=== PATIENT | female | born 1995 | race Caucasian/White ===

== ENCOUNTER → 2016-07-22 17:48 | Observation (INO) ==
--- NOTE | 2016-07-22 17:48 | OB/GYN Progress Note ---
Date of Encounter: 07/22/16 Time of Encounter: 17:45 - Assessment and Plan (1) Decreased movement Current Visit: Yes Status: Acute NST reactive, pt notes good movement while in triage (2) 38 weeks gestation of Current Visit: Yes Status: Acute (3) False labor Current Visit: Yes Status: Acute No cervical change while in triage. Discharge home with labor precautions. Subjective - Subjective Principal diagnosis: decreased movement Interval history: 21 year-old female presenting at 38w6d with c/o decreased movement today. She reports only a couple movements today when she would push on her abdomen. She also reports some contractions but not painful. No LOF, VB, or other complaints. She does admit to losing her mucus plug last evening. Antepartum ROS: contractions, no loss of fluid, no vaginal bleeding, no movement normal Objective - Exam FHR: category 1 FHR comments: NST reactive, good FM in triage Abdomen: Present: soft, gravid Uterus: Present: normal Cervical dilation: 4/80/-1 x 2 exams, no change while in triage
== END | disposition home or self-care (01) ==
LOC: 1NENULAB
PROVIDERS: ADMIT Obstetrics & Gynecology; ATTEND Obstetrics & Gynecology

== ENCOUNTER 2016-07-23 07:39 | Inpatient (IN) ==
--- NOTE | 2016-07-23 07:17 | OB/GYN History & Physical ---
Date of Encounter: 07/23/16 Time of Encounter: 07:10 Assessment and Plan (1) 39 weeks gestation of Current visit: Yes Status: Acute (2) Uterine contractions Current visit: Yes Status: Acute Pt has been seen twice in the last 24 hours for contractions. She is 39 weeks and is 4cm dilated. Waiting on repeat exam. Anticipate admit to L&D if attending physician agrees. Plan for pain medication and/or epidural as requested. GBS negative. Anticipate . History of Present Illness Chief complaint: contractions HPI: Ms. Gonzalez is a 21 year old female at 39 weeks presenting with c/o contractions and lower back pain. She reports constant lower back pain and contactions that are much more painful than when she was evaluated last evening. She also reports some mild lower back pain that is worse with contractions and some mild nausea that just started. No other complaints. This has been uncomplicated. Blood type A positive. Rubella immune. Serologies and GBS negative. Past Med Surg Social Fam HX - Past Medical History Medical history: no medical history Psychiatric history: anxiety, depression - Past Surgical History Surgical History: other - Social History Smoking Status: Never smoker Smokeless Tobacco Status: No Alcohol use: none Drug use: none - Family History Mother Living Status: Still Living Hx Family Cardiac Disorders: No Hx Family Respiratory Disorders: No Hx Family Cancer: No Hx Family GI Disorders: No Hx Family Genitourinary Disorders: No Hx Family Endocrine Disorder: No Hx Family Musculoskeletal Disorders: No Hx Family Neuromuscular Disorders: No Hx Family Neurologic Disorders: No Hx Family HEENT Disorders: No Hx Family Autoimmune Disorders: No Hx Family Reproductive Disorders: No Hx Family Psychosocial Disorders: No Hx Family Medical Disorders: No Obstetrical History - Pregnancies : 1 Medications and Allergies Vitamins 12/14/15 [History] Allergies pistachio nut Allergy (Verified 01/24/16 12:13) Swelling of Lip/Tongue/Throat Review of System OB All systems PM: reviewed and no additional remarkable complaints except as stated Exam - Constitutional Constitutional: well developed, well nourished, mild distress - HEENT HEENT: Mucus Membranes Moist - Lungs Respiratory exam: CTAB - Cardiovascular Cardiovascular exam: RRR - Abdomen Abdomen: Present: gravid, non tender - Extremities Extremities exam: normal inspection - Vulva Vulva: bilateral: normal - Vagina Vagina: Present: normal moisture - Cervix Dilation: 4 (per RN) - Anus/Rectum Anus/Rectum: Present: normal perianal skin Results All other labs normal. - VTE Reasons for not Prescribing Prophylaxis: Treatment not Indicated - Low risk for VTE
[~2016-07-23 07:39] MED LIST: *HR* Nalbuphine 20 MG/ML AMPUL IVP PRN; Famotidine 20 MG/2 ML VIAL IVP PRN; Metoclopramide 10 MG/2 ML VIAL IVP PRN; Naloxone 0.4 MG/ML INJ IVP PRN; Ondansetron 4 MG/2 ML VIAL IVP PRN; Ringers Solution, Lactated 1,000 ML IVC SCH
[2016-07-23 08:31] LABS: Basophils % 0.1 %; Eosinophils % 0.2 %; Hematocrit 37.2 % (35.3-44.9); Hemoglobin 12.3 g/dL (11.5-15.4); Immature Granulocytes % 0.7 % (0-4); Immature Platelets 7.9 % (1.1-6.1); Lymphocytes # 2.4 K/mcL (0.6-4.6); Lymphocytes % 16.1 %; Mean Corpuscular HGB Conc 33.1 g/dL (31.6-35.5); Mean Corpuscular Hemoglobin 27.4 pg (28.0-33.3); Mean Corpuscular Volume 82.9 fL (83.0-100.0); Mean Platelet Volume 11.4 fL (9.4-12.4); Monocytes # 1.3 K/mcL (0.0-1.3); Monocytes % 8.8 %; Neutrophils # 10.9 K/mcL (1.6-8.9); Platelet Count 174 K/mcL (140-400); Red Blood Count 4.49 M/mcL (3.82-4.97); Red Cell Distribution Width 13.2 % (11.5-14.5); Segmented Neutrophils % 74.1 %
--- NOTE | 2016-07-23 10:55 | OB Labor Progress Note ---
Date of Encounter: 07/23/16 Time of Encounter: 10:49 Labor Progress Note - Subjective Subjective: Pt up in room on birthing ball. Breathing through contractions. - Cervix Cervix: not checked - Heart Tones Heart Tones: 145 + accel intermittent monitoring. - Plan Plan: Continue current management plan Will reassess dilation this afternoon for change. If no change will consider AROM or augmentation. Intermittent monitoring before during and after contraction every 30 minutes. Anticipate
[2016-07-23] MEDS ORDERED: *HR* Nalbuphine 20 MG/ML AMPUL IVP PRN (13:40)
[2016-07-23] MEDS ORDERED: Oxytocin 20 units/ LR 1000 mL 20 UNIT/1,000 ML BAG IVC SCH (14:15)
--- NOTE | 2016-07-23 14:25 | OB Labor Progress Note ---
Date of Encounter: 07/23/16 Time of Encounter: 14:19 Labor Progress Note - Subjective Subjective: Pt resting comfortable now that she has had nubain. Pt states only feels contractions slightly. - Cervix Cervix: 4/100/-1 - Heart Tones Heart Tones: 145/moderate/+accels/-decels - Plan Plan: order placed to start pitocin per policy. Epidural when desires Anticipate
[2016-07-23] MEDS ORDERED: Epidural Premix (fent/bupiv) 110 ML EP ONE ×2 (15:54→21:55)
--- NOTE | 2016-07-23 16:00 | Anesthesia Evaluation PreOp ---
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 HX Other Medical History: Other (previous hip pain recieved physical therapy last 5 years ago, not positional dependent.) Anesthesia History: No Prior Anesthetic Complications, Past Anesthesia (wisdom teeth,.) Test: Positive Alcohol Use: none Drug use: none Medications and Allergies Vitamins 12/14/15 [History] Allergies pistachio nut Allergy (Verified 01/24/16 12:13) Swelling of Lip/Tongue/Throat Anesthesia Results - Labs 07/23/16 08:12 Anesthesia Exam - HEENT Pupil (Motor): Pupils equal Mallampati: II Teeth: Normal Oral Opening: Greater than 3 - KINDERGARTEN TEACHER LOC: Oriented KINDERGARTEN TEACHER Motor: Normal RUE, Normal LUE, Normal RLE, Normal LLE, Normal Face KINDERGARTEN TEACHER Sensory: Normal: RUE, LUE, RLE, LLE, Face - Cardiac Rhythm: Regular Murmur: None - Pulmonary Breath Sounds: bilateral Clear Respiratory Effort: Symmetrical Anesthesia Assess/Plan ASA Score: 2 Modified Reading Scale for Level of Consciousness: Cooperative, oriented, and tranquil Anesthetic Plan: General, Regional Monitoring Plan: Standard Monitors
--- NOTE | 2016-07-23 16:26 | Anesthesia Procedures ---
Date of Encounter: 07/23/16 Time of Encounter: 16:11 Procedures: Anesthesia - Epidural/Spinal Patient ID/Chart reviewed: Yes Patient examined: Yes OB Eval: Gestational age: term OB Eval: : 1 OB Eval: Dilated at (cm): 5 OB Eval: Contractions: Non-stressed pattern Consent Obtained: Yes Supplemental Oxygen: None/Room Air Site Prep: Aseptic Technique, Sterile prep and drape, 0.5% Chlorhexidine/Alcohol Patient position: upright Local Anesthetic: Lidocaine 1% Amount of Local Anesthetic used: 2 Touhy Needle Gauge: 18 Touhy Needle Depth (cm): 6 Catheter Depth at Skin (cm): 10 Test Dose (1.5% Lido + Epi): Volume given (mls): 3 Test Dose Result: Negative Loading Dose: Other: 12 ml from solution Loading Dose Administered: Thru Catheter Infusion Med: 0.125% Bupivacaine w/ 2 mcg/ml Fentanyl Infusion Rate (mls/hr): [address]: Tegaderm, Tape Interspace Used: L3-L4 Loss of Resistance (MOSHE): Yes (saline) Blood: No CSF: No Paresthesia: No Procedure: vss though out, FHR stable per RN's.
--- NOTE | 2016-07-23 23:04 | OB Labor Progress Note ---
Date of Encounter: 07/23/16 Time of Encounter: 23:03 Labor Progress Note - Subjective Subjective: pt starting to feel contractions and pressure in her bottom - Cervix Cervix: Complete - Heart Tones Heart Tones: 155/moderate/-accels/earlies and variables CatII - [place]: 1-3 - Plan Plan: Labor down untl feels more pressure. Anticipate
[2016-07-24] MEDS ORDERED: Measles/Mumps/Rubella Vacc 0.5 ML VIAL SQ PRN (04:19)
[2016-07-24] MEDS ORDERED: Acetaminophen 325 MG TABLET PO PRN (04:19)
[2016-07-24] MEDS ORDERED: Rho Immune Globulin 1,500 UNIT SYRINGE IM PRN (04:19)
[2016-07-24] MEDS ORDERED: Oxytocin 20 units/ LR 1000 mL 20 UNIT/1,000 ML BAG IVC SCH (04:30)
[2016-07-24] MEDS ORDERED: Ibuprofen 600 MG TABLET PO ONE (05:08)
[2016-07-24] MEDS: Ibuprofen 600 MG TABLET PO PRN ×2 (05:12→20:39)
--- NOTE | 2016-07-24 07:01 | OB/GYN Procedure Note ---
Delivery - Delivery Provider: Rosemarie Lugo) Intrapartum events: none Delivery induction: none Delivery augmentation: rupture of membranes, pitocin Delivery monitor: external FHT, external uterine, internal FHT Anesthesia: epidural Estimated Blood Loss: 150 - Infant (s) A Delivery Date: 07/24/16 Delivery Time: 02:22 Presentation: vertex Position: PAYTON Gender: Female Viability: Viable Weight Gram: 3.53 kg at 1 minute: 8 at 5 mins: 8 Shoulder Dystocia: not encountered Placenta: spontaneous Cord: 3 umbilical vessels - Repair Episiotomy: none Laceration Description: Perineal - 2nd Degree - Complications Delivery complications: none Delivery comments: Pt with directed pushing efforts to of liveborn girl. Vertex delivered OA, shoulders easily followed. no nuchal or shoulder dystocia encountered. placed on maternal abdomen. Apgars 8/8. Placenta delivered spontaneously, intact , fundus massaged to firm. EBL 150. Second degree perineal laceration repaired with 3-0 vycril. All sponge and needle counts correct. Dr. García called for stand by attendance in delivery due to mother and father being greater than 9 pounds in case of shoulder dystocia. - Disposition Mom disposition: stable in LDR disposition: stable in LDR
[2016-07-24] MEDS: Prenatal Vit/FA 1 EACH TABLET PO SCH (08:00)
[2016-07-24] MEDS ORDERED: Lanolin 7 G OINT...G. TP PRN (15:05)
[2016-07-25 05:49] LABS: Basophils % 0.2 %; Eosinophils # 0.1 K/mcL (0.0-0.6); Eosinophils % 0.7 %; Hematocrit 27.7 % (35.3-44.9); Hemoglobin 8.8 g/dL (11.5-15.4); Immature Granulocytes % 0.6 % (0-4); Lymphocytes # 3.7 K/mcL (0.6-4.6); Lymphocytes % 28.8 %; Mean Corpuscular HGB Conc 31.8 g/dL (31.6-35.5); Mean Corpuscular Hemoglobin 27.4 pg (28.0-33.3); Mean Corpuscular Volume 86.3 fL (83.0-100.0); Monocytes # 1.1 K/mcL (0.0-1.3); Monocytes % 8.6 %; Neutrophils # 7.8 K/mcL (1.6-8.9); Platelet Count 136 K/mcL (140-400); Red Blood Count 3.21 M/mcL (3.82-4.97); Red Cell Distribution Width 13.6 % (11.5-14.5); Segmented Neutrophils % 61.1 %
[2016-07-25 07:39] VITALS: BP 112/71
--- NOTE | 2016-07-25 07:48 | Discharge Summary ---
Date of Encounter: 07/25/16 Time of Encounter: 07:46 - Discharge Diagnosis (1) Vaginal delivery Priority: Primary Status: Acute Comments: Continue routine care discharge home today (2) anemia Priority: Secondary Status: Acute Comments: Will start ferrous sulfate po daily - Discharge Medications Prescriptions: Ibuprofen [Motrin] 600 mg PO Q6HR PRN #60 tablet PRN Reason: Cramping Docusate [Colace] 100 mg PO BID #60 capsule Ferrous Sulfate 325 mg PO DAILY #30 tablet Home Medications: Vitamins 12/14/15 [History] Docusate [Colace] 100 mg PO BID #60 capsule 07/25/16 [Rx] Ferrous Sulfate 325 mg PO DAILY #30 tablet 07/25/16 [Rx] Ibuprofen [Motrin] 600 mg PO Q6HR PRN #60 tablet 07/25/16 [Rx] Vit/FA 1 each PO DAILY tablet 07/25/16 [Rx] Allergies/Adverse Reactions: Allergies pistachio nut Allergy (Verified 01/24/16 12:13) Swelling of Lip/Tongue/Throat Data Procedures and tests throughout hospitalization: Laboratory Tests 07/23/16 07/25/16 08:12 05:21 WBC 14.7 H 12.7 H RBC 4.49 3.21 L Hgb 12.3 8.8 L D Hct 37.2 27.7 L MCV 82.9 L 86.3 MCH 27.4 L 27.4 L MCHC 33.1 31.8 RDW 13.2 13.6 Plt Count 174 136 L MPV 11.4 11.0 Immature Gran % 0.7 0.6 Seg Neutrophils % 74.1 61.1 Lymphocytes % 16.1 28.8 Monocytes % 8.8 8.6 Eosinophils % 0.2 0.7 Basophils % 0.1 0.2 Neutrophils # 10.9 H 7.8 Lymphocytes # 2.4 3.7 Monocytes # 1.3 1.1 Eosinophils # 0.0 0.1 Basophils # 0.0 0.0 Immature Plt Fraction 7.9 H Labs on day of discharge: Labs from last 24 hours 07/25/16 05:21 WBC 12.7 H RBC 3.21 L Hgb 8.8 L D Hct 27.7 L MCV 86.3 MCH 27.4 L MCHC 31.8 RDW 13.6 Plt Count 136 L MPV 11.0 Immature Gran % 0.6 Seg Neutrophils % 61.1 Lymphocytes % 28.8 Monocytes % 8.6 Eosinophils % 0.7 Basophils % 0.2 Neutrophils # 7.8 Lymphocytes # 3.7 Monocytes # 1.1 Eosinophils # 0.1 Basophils # 0.0 Date of admission: 07/23/16 07:39 Primary care physician: Diogo Acosta MD Consults: 07/24/16 04:19 Consult to Behavioral Health Director [CONS] Routine Comment: Vaginal delivery, consult needed Discharging clinician: Deena Lewis Anticipated date of discharge: 07/25/16 - Patient Status Disposition: Home, Self-Care Condition: Good Functional capacity at discharge: independent ambulation - Discharge Instructions Follow Up With: Diogo Acosta MD [Primary Care Provider] - Deena Lewis CNM [Non-Partnered Physician] - - Diet and Activity Activity: increase activity as tolerated Diet: regular diet Hospital Course Reason for admission: active labor Delivery: Episiotomy: none Laceration: 2nd degree Other procedures: none complications: none Discharge diagnosis: IUP at term delivered baby: female (bottle feeding) Time Attestation: Total time spent providing and/or coordinating discharge services: Time Spent: Less than 30 minutes Exam - Constitutional Vitals: Temp Pulse Resp BP Pulse Ox 97.6 F 98 16 112/71 98 07/25/16 07:38 07/25/16 07:38 07/25/16 07:38 07/25/16 07:38 07/24/16 20:40 General appearance IM: A&O X 3, pleasant, answers questions appropriately - Respiratory Respiratory exam: Present: CTAB - Cardiovascular Cardiovascular exam IM: Present: RRR, +S1, +S2 - GI/Abdominal GI/Abdominal exam IM: normal bowel sounds - Uterine Tone: Firm Uterus Position: 1 Finger Below Umbilicus, Midline - Extremities Exam Extremities exam IM: Present: full ROM, normal capillary refill, normal inspection - Neurological Exam Neurological exam: alert, oriented X3, reflexes normal
[2016-07-25] MEDS: Prenatal Vit/FA 1 EACH TABLET PO SCH (07:50)
[2016-07-25] MEDS: Ibuprofen 600 MG TABLET PO PRN (07:52)
[2016-07-25] MEDS ORDERED: Benzocaine/Menthol 56 GM AEROSOL SPRAY TP PRN (08:15)
== END 2016-07-25 11:30 | disposition home or self-care (01) | DRG 775 ==
LOC: 1NENULAB → 1NENUOBS 07-24 05:55
PROVIDERS: ADMIT Registered Nurse; ATTEND Registered Nurse

== ENCOUNTER → 2017-07-03 10:50 | Observation (INO) ==
[2017-07-03 08:01] LABS: Bilirubin,Urine Small (Negative); Blood,Urine Negative (Negative); Clarity,Urine Cloudy (Clear); Color,Urine Dark Yellow (Yellow); Glucose,Urine (UA) Normal (Normal); Ketones,Urine Negative (Negative); Leukocyte Esterase,Urine Moderate (Negative); Nitrite,Urine Negative (Negative); Protein,Urine 30 mg/dL (Neg-Trace); Specific Gravity,Urine > 1.030 (1.010-1.025); Urobilinogen,Urine Normal (Normal)
[2017-07-03 08:03] LABS: Bacteria,Urine Moderate per hpf (None-Few); Squamous Epithelial Cell,Urine Many per lpf (None-Few); WBC,Urine 50-100 per hpf (0-3)
--- NOTE | 2017-07-03 09:40 | OB/GYN Progress Note ---
Date of Encounter: 07/03/17 Time of Encounter: 09:34 - Assessment and Plan (1) 25 weeks gestation of Current Visit: Yes Status: Acute (2) Positive fern test Current Visit: Yes Status: Acute CBC collected and clot to hold Start IV LR 125 an hour Ampicillin 2 g IV Zithromax 500 mg IV Magnesium 6 g bolus for neural protection 12 mg betamethasone IM Spoke with [facility]-prefer to transfer to [facility] Subjective - Subjective Principal diagnosis: PPROM Interval history: Ms. Gonzalez is a 22-year-old at 25 weeks 0 days with an estimated date of of 10/16/17 dated by LMP. She presents today with complaints of concern for rupture of membranes. She reports this morning she woke up and her bed was wet followed by continued leaking or getting dressed for work. She reports last intercourse was yesterday. She also states she fell over a baby gate yesterday but denies impact on her stomach. She initially denies contractions. But the longer she is here she states that she is having some irritability and contractions. She reports good movement and denies vaginal bleeding. Antepartum ROS: new complaints, loss of fluid, movement normal, contractions, no vaginal bleeding Objective - Vital Signs Vital Signs: Intake and Output 07/02/17 07/03/17 07/03/17 23:59 07:59 15:59 Other: Weight 65.3 kg Patient Weight 07/03/17 23:59 Weight 65.3 kg - Exam FHR: category 1 FHR comments: Baseline 150 Moderate variability Accelerations present 10 x 10 Decelerations present-variables FHR category II [place] activity-irritability Auscultation: bilateral: normal Abdomen: Present: normal appearance, soft, gravid Uterus: Present: normal, firm Cervical dilation: 0 Comments: Cervix visually closed on speculum exam. No pooling observed. Fern test positive. - Labs Labs: Abnormal lab results Urine Clarity Cloudy (Clear) A 07/03/17 07:30 Ur Specific [place] > 1.030 (1.010-1.025) H 07/03/17 07:30 Urine Protein 30 mg/dL (Neg-Trace) H 07/03/17 07:30 Urine Bilirubin Small (Negative) H 07/03/17 07:30 Ur Leukocyte Esterase Moderate (Negative) H 07/03/17 07:30 Urine Microscopic RBC 5-15 per hpf (0-3) H 07/03/17 07:30 Urine Microscopic WBC 50-100 per hpf (0-3) H 07/03/17 07:30 Ur Squamous Epith Cells Many per lpf (None-Few) H 07/03/17 07:30 Urine Bacteria Moderate per hpf (None-Few) H 07/03/17 07:30 Ur Culture Indicated? NO. (NO) A 07/03/17 07:30
[2017-07-03 09:41] LABS: Basophils % 0.4 %; Eosinophils % 0.3 %; Hematocrit 33.6 % (35.3-44.9); Hemoglobin 11.3 g/dL (11.5-15.4); Immature Granulocytes % 0.6 % (0-4); Lymphocytes # 2.2 K/mcL (0.6-4.6); Lymphocytes % 27.9 %; Mean Corpuscular HGB Conc 33.6 g/dL (31.6-35.5); Mean Corpuscular Hemoglobin 27.9 pg (28.0-33.3); Mean Platelet Volume 9.7 fL (9.4-12.4); Monocytes # 0.8 K/mcL (0.0-1.3); Monocytes % 9.5 %; Neutrophils # 4.9 K/mcL (1.6-8.9); Platelet Count 207 K/mcL (140-400); Red Blood Count 4.05 M/mcL (3.82-4.97); Red Cell Distribution Width 13.2 % (11.5-14.5); Segmented Neutrophils % 61.3 %
[~2017-07-03 10:50] MED LIST changes: -*HR* Nalbuphine 20 MG/ML AMPUL IVP PRN; +Ampicillin 2 GM in 0.9 % Sodium Chloride Mini Bag 100 ML IVPB ONE; +Azithromycin 500 MG in D5% in Water 250 ML IVPB ONE; +Betamethasone Acet/SodPhos 6 MG/ML MDV IM SCH; -Famotidine 20 MG/2 ML VIAL IVP PRN; +Magnesium Sulfate 6 GM in 0.9 % Sodium Chloride 100 ML IVPB ONE; -Metoclopramide 10 MG/2 ML VIAL IVP PRN; -Naloxone 0.4 MG/ML INJ IVP PRN; -Ondansetron 4 MG/2 ML VIAL IVP PRN
[2017-07-03 11:19] LABS: Amphetamine Screen,Urine Negative ng/mL (Cutoff=1000); Barbiturate Screen,Urine Negative ng/mL (Cutoff=200); Benzodiazepines Screen,Urine Negative ng/mL (Cutoff=200); Cannabinoid Screen,Urine Negative ng/mL (Cutoff = 50); Cocaine Screen,Urine Negative ng/mL (Cutoff= 300); Opiate Screen,Urine Negative ng/mL (Cutoff=300); Phencyclidine Screen,Urine Negative ng/mL (Cutoff=25)
== END | disposition critical access hospital (66) ==
LOC: 1NENULAB
PROVIDERS: ADMIT Student in an Organized Health Care Education/Training Program; ATTEND Student in an Organized Health Care Education/Training Program

== ENCOUNTER 2017-10-05 04:18 | Inpatient (IN) ==
--- NOTE | 2017-10-05 01:26 | OB/GYN History & Physical ---
Date of Encounter: 10/05/17 Time of Encounter: 01:21 Assessment and Plan (1) 38 weeks gestation of Current visit: Yes Status: Acute Labor evaluation Anticipate admission for labor GBS negative (2) NST (non-stress test) reactive Current visit: Yes Status: Acute History of Present Illness Chief complaint: Contractions and leaking of fluid HPI: Ms. Gonzalez is a 22 year old at 38 weeks and 3 days gestation that presents to triage with c/o increased vaginal discharge after intercourse and contractions. She states they have gotten worse throughout the day. Her has been increased by her anxiety which is well controlled with zoloft. She otherwise has had an uncomplicated . She states positive movement, but states it has decreased in frequency today. She does have polyhydramnious with an RULA of 29 on 09/28/17 and an EFW of 7# 1 oz and 76%. Labs: GBS negative Hep B NR HIV NR RPR neg Rubella pos Varicella pos Blood type A+ Past Med Surg Social Fam HX - Past Medical History Medical history: non-contributory Psychiatric history: anxiety, depression - Past Surgical History Surgical History: other Additional surgical history: tonsillectomy - Social History Smoking Status: Never smoker Smokeless Tobacco Status: No Alcohol use: none Drug use: none - Family History Mother Adopted: No Living Status: Still Living Hx Family Cardiac Disorders: No Hx Family Respiratory Disorders: No Hx Family Cancer: No Hx Family GI Disorders: No Hx Family Endocrine Disorder: No Hx Family Neuromuscular Disorders: No Hx Family Neurologic Disorders: No Hx Family HEENT Disorders: No Hx Family Autoimmune Disorders: No Obstetrical History - Pregnancies : 2 Para: 1 Term: 1 : 0 Ab's: 0 Livin Medications and Allergies Tablet 1 tab PO DAILY 07/03/17 [History] Zoloft 50 mg PO ONCE 07/03/17 [History] 3 Allergy/AdvReac Type Severity Reaction Status Date / Time pistachio nut Allergy Swelling Verified 04/07/17 10:38 of Lip/Tongue/Throat Review of System OB All systems PM: reviewed and no additional remarkable complaints except as stated Exam - Constitutional Constitutional: well developed, well nourished, no acute distress, average body habitus - HEENT HEENT: Normocephaly, Mucus Membranes Moist - Lungs Respiratory exam: CTAB - Cardiovascular Cardiovascular exam: RRR, +S1, +S2 - Abdomen Abdomen: Present: bowel sounds normal, gravid, non tender - Extremities Extremities exam: normal capillary refill, normal inspection, radial pulses palpable and symmetrical Deep Tendon Reflex Grade: 2+ Normal - Vagina Vagina: Present: normal moisture - Cervix Dilation: 5 (5-6) Effacement: 80 (BBOW) Station: -2 - Uterus Uterus exam: Present: normal size, normal contour Results All other labs normal. - VTE Reasons for not Prescribing Prophylaxis: Treatment not Indicated - Low risk for VTE
[2017-10-05 01:37] LABS: Amphetamine Screen,Urine Negative ng/mL (Cutoff=1000); Barbiturate Screen,Urine Negative ng/mL (Cutoff=200); Benzodiazepines Screen,Urine Negative ng/mL (Cutoff=200); Cannabinoid Screen,Urine Negative ng/mL (Cutoff = 50); Cocaine Screen,Urine Negative ng/mL (Cutoff= 300); Opiate Screen,Urine Negative ng/mL (Cutoff=300); Phencyclidine Screen,Urine Negative ng/mL (Cutoff=25)
[2017-10-05 03:37] LABS: Basophils % 0.4 %; Eosinophils % 0.3 %; Hematocrit 32.3 % (35.3-44.9); Hemoglobin 10.2 g/dL (11.5-15.4); Immature Granulocytes % 0.8 % (0-4); Lymphocytes # 3.6 K/mcL (0.6-4.6); Lymphocytes % 33.5 %; Mean Corpuscular HGB Conc 31.6 g/dL (31.6-35.5); Mean Corpuscular Hemoglobin 24.1 pg (28.0-33.3); Mean Corpuscular Volume 76.2 fL (83.0-100.0); Mean Platelet Volume 10.7 fL (9.4-12.4); Monocytes # 0.9 K/mcL (0.0-1.3); Monocytes % 8.4 %; Platelet Count 198 K/mcL (140-400); Red Blood Count 4.24 M/mcL (3.82-4.97); Red Cell Distribution Width 15.3 % (11.5-14.5); Segmented Neutrophils % 56.6 %
[~2017-10-05 04:18] MED LIST changes: +*HR* Nalbuphine 10 MG/ML AMPUL IVP PRN; -Ampicillin 2 GM in 0.9 % Sodium Chloride Mini Bag 100 ML IVPB ONE; -Azithromycin 500 MG in D5% in Water 250 ML IVPB ONE; -Betamethasone Acet/SodPhos 6 MG/ML MDV IM SCH; +Famotidine 20 MG/2 ML VIAL IVP PRN; +Lidocaine 1% 20 ML MDV INFILT PRN; -Magnesium Sulfate 6 GM in 0.9 % Sodium Chloride 100 ML IVPB ONE; +Metoclopramide 10 MG/2 ML VIAL IVP PRN; +Naloxone 0.4 MG/ML INJ IVP PRN; +Ondansetron 4 MG/2 ML VIAL IVP PRN
[2017-10-05] MEDS ORDERED: Epidural Premix (fent/bupiv) 110 ML EP ONE (04:44)
[2017-10-05] MEDS ORDERED: Bupivacaine-MPF 0.25% 10 ML VIAL ONE (04:45)
[2017-10-05] MEDS ORDERED: *HR* FentaNYL (PF) 100 MCG/2 ML VIAL ONE (04:45)
[2017-10-05] MEDS ORDERED: EPHEDrine 50 MG/ML VIAL IVP PRN (05:17)
[2017-10-05] MEDS ORDERED: Bupivacaine-MPF 0.25% 10 ML VIAL EP ONE (05:17)
[2017-10-05] MEDS ORDERED: *HR* FentaNYL (PF) 100 MCG/2 ML VIAL EP ONE (05:17)
--- NOTE | 2017-10-05 05:19 | Anesthesia Evaluation PreOp ---
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
--- NOTE | 2017-10-05 05:21 | Anesthesia Procedures ---
Date of Encounter: 10/05/17 Time of Encounter: 05:20 Procedures: Anesthesia - Epidural/Spinal Patient ID/Chart reviewed: Yes Patient examined: Yes OB Eval: Contractions: Non-stressed pattern Supplemental Oxygen: None/Room Air Site Prep: Aseptic Technique Patient position: upright Local Anesthetic: Lidocaine 1% Amount of Local Anesthetic used: 3 Touhy Needle Gauge: 18 Touhy Needle Depth (cm): 6 Catheter Depth at Skin (cm): 12 Test Dose (1.5% Lido + Epi): Volume given (mls): 3 Test Dose Result: Negative Loading Dose: 0.25% Marcaine (mls): 5 Loading Dose: Fentanyl (mcg): 100 Loading Dose Administered: Thru Touhy Needle Infusion Med: 0.125% Bupivacaine w/ 2 mcg/ml Fentanyl Infusion Rate (mls/hr): 14 Interspace Used: L3-L4 Loss of Resistance (MOSHE): Yes Blood: No CSF: No Paresthesia: No
[2017-10-05] MEDS ORDERED: Epidural Premix (fent/bupiv) 110 ML EP SCH (05:30)
--- NOTE | 2017-10-05 06:54 | OB Labor Progress Note ---
Date of Encounter: 10/05/17 Time of Encounter: 06:52 Labor Progress Note - Subjective Subjective: Resting comfortably in bed after epidural - Vital Signs Vital Signs: VSS - Cervix Cervix: 7-8/100/ballottable - Heart Tones Heart Tones: 160 category - [place]: Contractions every 2-3 minutes - Plan Plan: Continue routine labor management GBS negative Consider AROM after well applied Consider pitocin if needed for adequate labor pattern Anticipate vaginal delivery POC per consult with Dr Dong.
[2017-10-05] MEDS ORDERED: Oxytocin 20 units/ LR 1000 mL 20 UNIT/1,000 ML BAG IVC SCH ×2 (08:30→14:04)
[2017-10-05] MEDS ORDERED: Oxytocin 20 units/ LR 1000 mL 20 UNIT/1,000 ML BAG IVC ONE (08:34)
--- NOTE | 2017-10-05 11:05 | OB Labor Progress Note ---
Date of Encounter: 10/05/17 Time of Encounter: 11:03 Labor Progress Note - Subjective Subjective: Patient resting. Reports feeling some pressure with contractions - Cervix Cervix: 9.5/100/+1 - Heart Tones Heart Tones: 145 bpm moderate variability +15x15 accels no decels noted. Cat. 1 tracing - [place]: 2-3 min apart - Interventions Interventions: SVE, AROM large amount clear fluid noted. - Plan Plan: Continue labor management anticipate
[2017-10-05] MEDS ORDERED: Ibuprofen 600 MG TABLET PO PRN ×2 (12:04→14:04)
--- NOTE | 2017-10-05 12:11 | OB/GYN Procedure Note ---
Delivery - Delivery Date: 10/05/17 Provider: Deena Lewis (Brina, PGY1) Intrapartum events: none, polyhydramnios Delivery induction: none Delivery augmentation: rupture of membranes Delivery monitor: external FHT, external uterine Anesthesia: epidural Quantitated Blood Loss: 300 - (s) A Infant Delivery Date: 10/05/17 Delivery Time: 11:35 Presentation: vertex Position: PAYTON Route of delivery: Gender: Female Viability: Viable Pounds: 7 Ounces: 9 Weight Gram: 3440 kg at 1 minute: 8 at 5 mins: 9 Shoulder Dystocia: encountered Shoulder Dystocia Maneuvers: Veto maneuver, suprapubic pressure Shoulder dystocia time elapsed: 20 Specimens collected: cord blood Placenta: spontaneous, uterine exploration Cord: 3 umbilical vessels - Repair Episiotomy: none Laceration Description: None - Complications Delivery complications: none - Disposition Mom disposition: stable in LDR disposition: stable in LDR - Comments Comments: Called to LDR, patient complete and +2 station. I was gowned and gloved and together with Dr. Gonsalves, PGY1 delivered a viable female infant over an intact perineum under epidural anesthesia. No nuchal cord or meconium was encountered. Approximated 20 second shoulder dystocia was encountered and was relieved with Veto maneuver and suprapubic pressure. was placed on maternal abdomen. Cord was clamped and cut after pulsations ceased. Placenta delivered spontaneously and intact. Apgars 8&9. EBL 300. Pericare provided, all counts correct. Both mother and stable in LDR for 2 hour recovery.
[2017-10-05] MEDS ORDERED: *HR* HYDROcodone/Acet 5/325 mg TABLET PO PRN (14:04)
[2017-10-05] MEDS ORDERED: Lanolin 7 G OINT...G. TP PRN (14:04)
[2017-10-05] MEDS ORDERED: Acetaminophen 325 MG TABLET PO PRN (14:04)
--- NOTE | 2017-10-06 08:46 | Discharge Summary ---
Date of Encounter: 10/06/17 Time of Encounter: 08:44 - Discharge Diagnosis (1) Vaginal delivery Priority: Primary Status: Acute Comments: Mother and baby resting comfortably post- Pain adequately controlled with Motrin Ambulating without difficulty Voiding appropriately Normal appetite and return to normal diet Has not yet had bowel movement Mild lochia with passage of few clots Patient plans to breastfeed Considering various forms of control - to discuss at 1st post- visit Plan to discharge home today (2) 38 weeks gestation of Priority: Secondary Status: Acute Comments: of infant F, 7lbs 9oz, apgars 8/9 - Discharge Medications Prescriptions: Ibuprofen [Motrin] 600 mg PO Q6HR PRN 30 Days #120 tablet PRN Reason: Cramping Docusate [Colace] 100 mg PO BID 30 Days #60 capsule Ferrous Sulfate 325 mg PO DAILY 30 Days #30 tablet Home Medications: Acetaminophen [Tylenol] 650 mg PO Q6HR PRN tablet 10/06/17 [Rx] Docusate [Colace] 100 mg PO BID 30 Days #60 capsule 10/06/17 [Rx] Ferrous Sulfate 325 mg PO DAILY 30 Days #30 tablet 10/06/17 [Rx] Ibuprofen [Motrin] 600 mg PO Q6HR PRN 30 Days #120 tablet 10/06/17 [Rx] Lanolin [Lansinoh] 1 appl TP TID PRN oint...g. 10/06/17 [Rx] Vit/FA 1 each PO DAILY tablet 10/06/17 [Rx] Allergies/Adverse Reactions: 3 Allergy/AdvReac Type Severity Reaction Status Date / Time pistachio nut Allergy Swelling Verified 04/07/17 10:38 of Lip/Tongue/Throat Data Procedures and tests throughout hospitalization: Laboratory Tests 10/05/17 10/05/17 01:10 02:00 WBC 10.7 RBC 4.24 Hgb 10.2 L Hct 32.3 L MCV 76.2 L MCH 24.1 L MCHC 31.6 RDW 15.3 H Plt Count 198 MPV 10.7 Immature Gran % 0.8 Seg Neutrophils % 56.6 Lymphocytes % 33.5 Monocytes % 8.4 Eosinophils % 0.3 Basophils % 0.4 Neutrophils # 6.0 Lymphocytes # 3.6 Monocytes # 0.9 Eosinophils # 0.0 Basophils # 0.0 Urine Opiates Screen Negative Ur Barbiturates Screen Negative Ur Phencyclidine Scrn Negative Ur Amphetamines Screen Negative U Benzodiazepines Scrn Negative Urine Cocaine Screen Negative U Marijuana (THC) Screen Negative Ur Drug Screen Interp See Below Date of admission: 10/05/17 04:19 Primary care physician: PCP NONE Consults: 10/05/17 14:04 Consult to [employer]ared Foods Supervisor [CONS] Routine Comment: Vaginal delivery, consult needed Discharging clinician: Brina Robbins Anticipated date of discharge: 10/06/17 - Patient Status Disposition: Home, Self-Care Condition: Good Functional capacity at discharge: independent ambulation Overall status at discharge: patient is progressing back to baseline - Discharge Instructions Follow Up With: NONE,PCP [Primary Care Provider] - Deena Lewis CNM [Non-Partnered Physician] - - Diet and Activity Activity: resume usual activities as tolerated Diet: advance to your usual diet Hospital Course Reason for admission: active labor Delivery: Episiotomy: none Laceration: none Other procedures: none complications: none Discharge diagnosis: IUP at term delivered [place] baby: female Hospital course: Pt is 22 y/o F who presented at 38 weeks, 3 days with complaints of vaginal discharge, contractions after intercourse. Upon evaluation, pt was at 5 -6cm cervical dilation, and decision was made to admit to L&D. Normal Standard Vaginal Delivery, with approximately 20 seconds of shoulder dystocia relieved with Veto maneuver and Suprapubic pressure. Pt gave to infant Female , 7lbs 9oz with apgars 8/9. Mother and baby are resting comfortably together post-. Time Attestation: Total time spent providing and/or coordinating discharge services: Time Spent: Less than 30 minutes Exam - Constitutional Vitals: Temp Pulse Resp BP Pulse Ox 98.3 F 92 16 105/64 99 10/06/17 04:25 10/06/17 04:25 10/06/17 04:25 10/06/17 04:25 10/06/17 04:25 General appearance IM: cooperative, A&O X 3, pleasant, no acute distress, answers questions appropriately - Respiratory Respiratory exam: Present: CTAB - Cardiovascular Cardiovascular exam IM: Present: RRR, +S1, +S2 - GI/Abdominal GI/Abdominal exam IM: normal bowel sounds, soft, no peritoneal signs - Uterine Tone: Firm Uterus Position: At Umbilicus - Extremities Exam Extremities exam IM: Present: full ROM, normal capillary refill, normal inspection, pedal edema, radial pulses palpable and symmetrical - Neurological Exam Neurological exam: alert, oriented X3 - Psychiatric Additional comments: Discussed with patient possibility and signs/symptoms of post- blues and depression. Recommended that she seeks medical attention with worsening symptoms. - Attending Attestation I have seen pt independent of resident physician and I agree with assessment and plan as outlined.
[2017-10-06 08:52] VITALS: BP 97/61
[2017-10-06] MEDS ORDERED: Prenatal Vit/FA 1 EACH TABLET PO SCH (09:00)
== END 2017-10-06 17:32 | disposition home or self-care (01) | DRG 775 ==
LOC: 1NENULAB → 1NENUOBS 13:46
PROVIDERS: ADMIT Advanced Practice Midwife; ATTEND Advanced Practice Midwife

== ENCOUNTER 2019-05-31 06:00 | Inpatient (IN) ==
[2019-05-31] MEDS ORDERED: Naloxone 0.4 MG/ML INJ IVP PRN (06:21)
[2019-05-31] MEDS ORDERED: Famotidine 20 MG/2 ML VIAL IVP PRN (06:21)
[2019-05-31] MEDS ORDERED: Metoclopramide 10 MG/2 ML VIAL IVP PRN (06:21)
[2019-05-31] MEDS ORDERED: *HR* FentaNYL (PF) 100 MCG/2 ML VIAL IVP PRN (06:21)
[2019-05-31] MEDS ORDERED: Azithromycin 500 MG in 0.9 % Sodium Chloride 250 ML IVPB ONE (06:26)
[2019-05-31] MEDS ORDERED: Ringers Solution, Lactated 1,000 ML IVC SCH (06:30)
[2019-05-31 06:56] LABS: Basophils % 0.3 %; Eosinophils % 0.2 %; Hematocrit 31.8 % (35.3-44.9); Hemoglobin 9.6 g/dL (11.5-15.4); Immature Granulocytes % 1.3 % (0-4); Lymphocytes # 2.6 K/mcL (0.6-4.6); Lymphocytes % 30.4 %; Mean Corpuscular HGB Conc 30.2 g/dL (31.6-35.5); Mean Corpuscular Hemoglobin 22.9 pg (28.0-33.3); Mean Corpuscular Volume 75.7 fL (83.0-100.0); Monocytes # 0.9 K/mcL (0.0-1.3); Monocytes % 10.5 %; Neutrophils # 4.9 K/mcL (1.6-8.9); Platelet Count 166 K/mcL (140-400); Red Cell Distribution Width 16.7 % (11.5-14.5); Segmented Neutrophils % 57.3 %; White Blood Count 8.6 K/mcL (4.3-11.1)
[2019-05-31 08:05] LABS: Amphetamine Screen,Urine Negative ng/mL (Cutoff=1000); Barbiturate Screen,Urine Negative ng/mL (Cutoff=200); Benzodiazepines Screen,Urine Negative ng/mL (Cutoff=200); Cannabinoid Screen,Urine Negative ng/mL (Cutoff = 50); Cocaine Screen,Urine Negative ng/mL (Cutoff= 300); Opiate Screen,Urine Negative ng/mL (Cutoff=300); Phencyclidine Screen,Urine Negative ng/mL (Cutoff=25)
[2019-05-31] MEDS ORDERED: Oxytocin 20 units/ LR 1000 mL 20 UNIT/1,000 ML BAG IVC SCH ×2 (11:30→23:54)
[2019-05-31] MEDS ORDERED: Ropivacaine/PF 0.2% 20 ML VIAL EP ONE (11:48)
[2019-05-31] MEDS ORDERED: EPHEDrine 50 MG/ML VIAL IVP PRN (11:48)
[2019-05-31] MEDS ORDERED: Epidural Premix (fent/bupiv) 110 ML EP ONE (11:54)
[2019-05-31] MEDS ORDERED: Epidural Premix (fent/bupiv) 110 ML EP SCH (12:00)
[2019-05-31] MEDS ORDERED: Benzocaine/Menthol 56 GM AEROSOL SPRAY TP PRN (23:54)
[2019-05-31] MEDS ORDERED: Acetaminophen 325 MG TABLET PO PRN (23:54)
[2019-06-01] MEDS: Ibuprofen 600 MG TABLET PO PRN ×4 (00:27→21:26)
[2019-06-01] MEDS ORDERED: Prenatal Vit/FA 1 EACH TABLET PO SCH (09:00)
[2019-06-01 21:11] VITALS: BP 107/66
== END 2019-06-01 23:10 | disposition home or self-care (01) | DRG 560 ==
LOC: 1NENULAB 06:01 → 1NENUOBS 23:43
PROVIDERS: ADMIT Registered Nurse; ATTEND Registered Nurse